=== PATIENT | female | born 1980 | race African-American/Black ===

== ENCOUNTER 2019-10-03 11:47 | Emergency (ER) | payer MEDICAID ==
[~2019-10-03] VITALS: Ht 170.2 cm; Wt 91.2 kg
[2019-10-03 11:56] VITALS: BP 135/93
[2019-10-03 12:39] VITALS: BP 132/93
== END 2019-10-03 12:30 | disposition home or self-care (01) ==
LOC: MED 11:47
DX: S00.261A Insect bite (nonvenomous) of right eyelid and periocular area, initial encounter (principal); H02.841 Edema of right upper eyelid; Z88.0 Allergy status to penicillin; W57.XXXA Bitten or stung by nonvenomous insect and other nonvenomous arthropods, initial encounter; Y93.89 Activity, other specified; Y92.89 Other specified places as the place of occurrence of the external cause; Y99.8 Other external cause status
CPT/HCPCS: 99282

== ENCOUNTER 2019-11-14 09:23 | Emergency (ER) | payer MEDICAID ==
[~2019-11-14] VITALS: Ht 167.6 cm; Wt 89.8 kg
[2019-11-14 09:27] VITALS: BP 134/91
--- NOTE | 2019-11-14 09:35 | NUR ---
Patient ambulated to bed 8. RN evaluating patient at bedside.
--- NOTE | 2019-11-14 10:04 | NUR ---
Dr. Scales is evaluating the patient at bedside.
[2019-11-14 10:47] VITALS: BP 134/91
--- NOTE | 2019-11-14 10:48 | NUR ---
Patient discharged with v/s stable. Written and verbal after care instructions given and explained. Patient alert, oriented and verbalized understanding of instructions. Ambulatory with steady gait. All questions addressed prior to discharge. ID band removed. Patient advised to follow up with PMD. Rx of IBUPROFEN, CODEINE PHOSPATE/ PROMETHAZINE HYDROCHLORIDE given. Patient educated on indication of medication including possible reaction and side effects. Opportunity to ask questions provided and answered.
== END 2019-11-14 10:48 | disposition home or self-care (01) ==
LOC: MED 09:23
DX: M94.0 Chondrocostal junction syndrome [Tietze] (principal); J40 Bronchitis, not specified as acute or chronic; Z88.0 Allergy status to penicillin
CPT/HCPCS: 99283

== ENCOUNTER 2019-11-21 14:07 | Emergency (ER) | payer MEDICAID ==
[~2019-11-21] VITALS: Ht 167.6 cm; Wt 93.4 kg
[2019-11-21 14:29] VITALS: BP 136/86
--- NOTE | 2019-11-21 14:49 | NUR ---
Patient ambulated to bed 11. RN evaluating patient at bedside.
[2019-11-21] MEDS ORDERED: ONDANSETRON 4 MG ODT PO ONE (15:05)
--- NOTE | 2019-11-21 15:28 | NUR ---
PT PRESENTS TO ED FOR EVALUATION OF N/V/D SINCE SUNDAY. ALSO STATED FLULIKE SYMPTOMS X 2 WKS. PT AAO X4, GCS 15, AMBULATORY WITH STDEAY GAIT. RESPIRATIONS EVEN AND UNLABORED, BL LUNG CLEAR. SKIN WARM AND DRY, COLOR APPROPIATE FOR RACE. ABDOMEN SOFT, NON DISTNEDED, HYPERACTIVE BOWEL SOUND X4. VS WNL. MADE AWARE OF PT STATUS. WILL CONTINUE TO MONITOR
[2019-11-21 16:56] VITALS: BP 133/88
--- NOTE | 2019-11-21 16:56 | NUR ---
Patient discharged with v/s stable. Written and verbal after care instructions given and explained. Patient alert, oriented and verbalized understanding of instructions. Ambulatory with steady gait. All questions addressed prior to discharge. ID band removed. Patient advised to follow up with PMD. Rx ofZOFRAN ODT 4 MG, TESSALON,MOTRIN 600 MG given. Patient educated on indication of medication including possible reaction and side effects. Opportunity to ask questions provided and answered.
== END 2019-11-21 16:56 | disposition home or self-care (01) ==
LOC: MED 14:07
DX: R11.2 Nausea with vomiting, unspecified (principal); R05 Cough; R19.7 Diarrhea, unspecified; Z88.0 Allergy status to penicillin
CPT/HCPCS: 71045; 81025; 99283; Q0092; Q0162